=== PATIENT | female | born 1990 | race Caucasian/White ===

== ENCOUNTER 2017-01-10 17:18 | Emergency (ER) | payer SELFPAY ==
[2017-01-10 18:11] VITALS: BP 101/65
== END 2017-01-11 03:14 | disposition left against medical advice (07) ==
LOC: ED 17:18
DX: M79.1 Myalgia (principal); Z53.21 Procedure and treatment not carried out due to patient leaving prior to being seen by health care provider

== ENCOUNTER 2017-12-06 09:25 | Emergency (ER) | payer MEDICAID ==
[2017-12-06 09:29] VITALS: BP 124/67
[2017-12-06 10:32] LABS: Bilirubin,Urine NEG (Negative); Blood,Urine NEG (Negative); Color,Urine Yellow (Yellow); Mucus,Urine 2+ /HPF; Protein,Urine <15 mg/dL mg/dL (Negative)
--- NOTE | 2017-12-06 11:00 | Emergency Department Report ---
Chief Complaint: Urogenital-Female Stated Complaint: POSS BACTERIAL INFECTION Time Seen by Provider: 12/06/17 10:57 - HPI History of Present Illness: When he 7-year-old -[place] female comes in history of vaginal discharge. Patient reports that she thinks is a bacterial infection she gets them often after she has her period. Patient denies any pelvic pain no abdominal pain no nausea no vomiting no fever no chills. - ROS Review of Systems: Vaginal discharge no pelvic pain no abdominal pain no nausea no vomiting or fever no chills - Exam Vital Signs: Vital Signs 12/06/17 09:27 Temperature 98.2 F Pulse Rate 71 Respiratory 18 Rate Blood Pressure 124/67 O2 Sat by Pulse 100 Oximetry Physical Exam: Patient alert and oriented 3. Patient is in no acute distress. MSE screening note: Focused history and physical exam performed. Due to findings the following was ordered: Nonemergent exam screening Patient's been interviewed by this provider. Discussed the patient that since she has no pain no nausea no vomiting fever or chills that I will refer her to [facility] for her to follow up. ED Disposition for MSE Condition: Stable Referrals: PRIMARY CARE, [Primary Care Provider] - 3-5 Days
== END 2017-12-06 11:17 | disposition left against medical advice (07) ==
LOC: ED 09:25
DX: N89.8 Other specified noninflammatory disorders of vagina (principal)
CPT/HCPCS: 81001; 99282